=== PATIENT | male | born 1965 | race Two or more races ===

== ENCOUNTER 2024-08-04 09:14 | Emergency (ER) | payer OTHER ==
[~2024-08-04] VITALS: Ht 172.7 cm; Wt 83.9 kg
[2024-08-04] MEDS ORDERED: KETOROLAC TROMETHAMINE 10 MG TABLET PO ONE (11:30)
== END 2024-08-04 14:40 | disposition home or self-care (01) ==
LOC: ER 09:16
DX: S49.81XA Other specified injuries of right shoulder and upper arm, initial encounter (principal); W20.8XXA Other cause of strike by thrown, projected or falling object, initial encounter; Y93.89 Activity, other specified; Y92.89 Other specified places as the place of occurrence of the external cause